=== PATIENT | female | born 1995 | race Caucasian/White ===

== ENCOUNTER → 2019-02-08 13:40 | Observation (INO) ==
[2019-02-08 10:39] LABS: Amphetamine Screen,Urine Negative ng/mL (Cutoff=1000); Barbiturate Screen,Urine Negative ng/mL (Cutoff=200); Benzodiazepines Screen,Urine Negative ng/mL (Cutoff=200); Cannabinoid Screen,Urine Negative ng/mL (Cutoff = 50); Cocaine Screen,Urine Negative ng/mL (Cutoff= 300); Opiate Screen,Urine Negative ng/mL (Cutoff=300); Phencyclidine Screen,Urine Negative ng/mL (Cutoff=25)
--- NOTE | 2019-02-08 13:23 | Discharge Summary ---
Date of Encounter: 02/08/19 Time of Encounter: 13:22 - Discharge Diagnosis (1) 35 weeks gestation of Priority: Primary Status: Acute Comments: Follow-up with Dr. Winn as scheduled Labor parameters discussed [facility] home (2) Gestational diabetes mellitus (GDM) treated with oral hypoglycemic therapy Priority: Secondary Status: Acute Comments: Continue oral hypoglycemics per recommendation from [facility] (3) NST (non-stress test) reactive Priority: Secondary Status: Acute Comments: Patient was monitored for almost 4 hours with a category 1 tracing. Ultrasound was completed and ADRIA found to be 7.8 cm. 1 L IV fluids given and patient instructed on hydration - Discharge Medications Prescriptions: No Action Zantac 75 75 mg PO BID Vitamin C 1 mg PO DAILY One Tablet 1 tab PO DAILY metFORMIN 1,000 mg PO BID Ferrous Fumarate/Iron Ps Cplx 1 tab PO TID Home Medications: Ferrous Fumarate/Iron Ps Cplx 1 tab PO TID 01/15/19 [History] One Tablet 1 tab PO DAILY 01/15/19 [History] Vitamin C 1 mg PO DAILY 01/15/19 [History] Zantac 75 75 mg PO BID 01/15/19 [History] metFORMIN 1,000 mg PO BID 01/15/19 [History] Allergies/Adverse Reactions: Allergy/AdvReac Type Severity Reaction Status Date / Time No Known Allergies Allergy Verified 02/08/19 09:55 Data Procedures and tests throughout hospitalization: Laboratory Tests 02/08/19 02/08/19 10:13 12:09 Glucose 77 Urine Opiates Screen Negative Ur Buprenorphine Scrn Negative Ur Barbiturates Screen Negative Ur Phencyclidine Scrn Negative Ur Amphetamines Screen Negative U Benzodiazepines Scrn Negative Urine Cocaine Screen Negative U Marijuana (THC) Screen Negative Ur Drug Screen Interp See Below Labs on day of discharge: Labs from last 24 hours 02/08/19 02/08/19 12:09 10:13 Glucose 77 Urine Opiates Screen Negative Ur Buprenorphine Scrn Negative Ur Barbiturates Screen Negative Ur Phencyclidine Scrn Negative Ur Amphetamines Screen Negative U Benzodiazepines Scrn Negative Urine Cocaine Screen Negative U Marijuana (THC) Screen Negative Ur Drug Screen Interp See Below - Impressions ITS Impressions Obstetrics Ultrasound 02/08/19 10:00 IMPRESSION: 1. Single live intrauterine with gestational age of 35 weeks 3 days by current sonographic biometry. The estimated due date is 03/12/2019. 2. Findings are consistent with oligohydramnios, with a mildly reduced ADRIA of 7.8 cm. D/ / Felix Maciel MD / Felix Maciel MD Interpreting Provider: Felix Maciel MD Date of admission: 02/08/19 09:35 Primary care physician: Natalie Spears CNP Discharging clinician: Cary Rodrigues Anticipated date of discharge: 02/08/19 - Patient Status Disposition: Home, Self-Care Condition: Good Functional capacity at discharge: independent ambulation Overall status at discharge: patient is progressing back to baseline - Discharge Instructions Follow Up With: Natalie Spears CNP [Primary Care Provider] - Cary Winn MD [Partnered Physician] - Additional Instructions: LABOR AND DELIVERY DISCHARGE INSTRUCTIONS Signs and Symptoms to be Reported to your Doctor Immediately: * Sudden gush, continuous or intermittent lead of fluid from vagina (note the time of gush and color of fluid) * Onset of bright red vaginal bleeding with or without pain (if you had a vaginal exam during this visit you may notice some dark red spotting. This is normal.) * Lower abdominal cramping or backache that is premenstrual-like feeling. * More than 6 contractions in one hour. * Burning during urination, having to urinate more frequently or pain in your mid-back. * A change in the baby's activity. This could be an increase or decrease in activity. * Severe headache which does not go away with tylenol. * Sudden swelling in the face, hands, arms and/or legs. * Upper abdominal pain - sometimes associated with heartburn or nausea and is not relieved by Maalox, Mylanta or Tums. * Dizziness or blurred vision or visual disturbances (seeing stars/lights). * Kick Counts One hour after a meal, lay down on one side in a quiet place. Count the number of diana the baby moves during an hour. If less than 6 movements, notify your physician. Diet: *Force fluids - 8-10 tall glasses of fluid per day. May include popsicles and jello. 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 She is gestational diabetic controlled on 1000 mg metformin twice a day. She is followed up closely with [facility] regarding her gestational diabetes. She was monitored here on the unit for 3+ hours. She was discharged home in stable condition per consultation with Dr. Peres. Time Attestation: Total time spent providing and/or coordinating discharge services: Time Spent: Less than 30 minutes Exam - Constitutional General appearance IM: A&O X 3, morbidly obese, pleasant, no acute distress, an swers questions appropriately - Respiratory Respiratory exam: Present: CTAB - Cardiovascular Cardiovascular exam IM: Present: RRR, +S1, +S2 - GI/Abdominal GI/Abdominal exam IM: normal bowel sounds, no peritoneal signs - Rectal Rectal exam: deferred - Uterine Tone: Firm - Extremities Exam Extremities exam IM: Present: full ROM, normal capillary refill, normal in spection, radial pulses palpable and symmetrical - Neurological Exam Neurological exam: alert, CN II-XII intact, normal gait, oriented X3, reflexes normal, no focal deficits, strengths equal and symetr throughout - VTE Reasons for not Prescribing Prophylaxis: Treatment not Indicated - Low risk for VTE
[~2019-02-08 13:40] MED LIST: Betamethasone Acet/SodPhos 30 MG/5 ML VIAL IM SCH; Ringers Solution, Lactated 1,000 ML IVC ONE; Ringers Solution, Lactated 1,000 ML ONE
== END | disposition home or self-care (01) ==
LOC: 1NENULAB
PROVIDERS: ADMIT Advanced Practice Midwife; ATTEND Advanced Practice Midwife

== ENCOUNTER → 2019-02-13 22:05 | Observation (INO) ==
[2019-02-13 16:12] LABS: Bilirubin,Urine Negative (Negative); Blood,Urine Negative (Negative); Clarity,Urine Cloudy (Clear); Color,Urine Yellow (Yellow); Glucose,Urine (UA) Normal (Normal); Ketones,Urine Negative (Negative); Leukocyte Esterase,Urine Moderate (Negative); Nitrite,Urine Negative (Negative); PH,Urine 6.5 pH Units (5.0-8.0); Protein,Urine Negative (Neg-Trace); Specific Gravity,Urine 1.026 (1.010-1.025); Urobilinogen,Urine Normal (Normal)
[2019-02-13 16:13] LABS: Bacteria,Urine Many per hpf (None-Few); Hyaline Casts,Urine Few per lpf (None-Few); Squamous Epithelial Cell,Urine Many per lpf (None-Few); WBC,Urine 30-50 per hpf (0-3)
[2019-02-13 16:21] LABS: Amphetamine Screen,Urine Negative ng/mL (Cutoff=1000); Barbiturate Screen,Urine Negative ng/mL (Cutoff=200); Benzodiazepines Screen,Urine Negative ng/mL (Cutoff=200); Cannabinoid Screen,Urine Negative ng/mL (Cutoff = 50); Cocaine Screen,Urine Negative ng/mL (Cutoff= 300); Opiate Screen,Urine Negative ng/mL (Cutoff=300); Phencyclidine Screen,Urine Negative ng/mL (Cutoff=25)
[2019-02-13 16:35] LABS: Calcium Oxalate Crystals,Urine Present; RBC,Urine 0-3 per hpf (0-3)
--- NOTE | 2019-02-13 18:02 | OB/GYN Progress Note ---
Date of Encounter: 02/13/19 Time of Encounter: 17:00 - Assessment and Plan (1) 35 weeks gestation of Current Visit: No Status: Acute Monitor for S/S labor with toco. Monitor activity and FHTs per external monitor. Hydrate as tolerated. (2) Elevated blood pressure affecting in third trimester, antepartum Current Visit: No Status: Acute BP's normal to severe range. All BP's that were severe were taken on forearm. Pt denies s/sx preeclampsia. PIH labs ordered. Disposition pending results. (3) Gestational diabetes mellitus (GDM) treated with oral hypoglycemic therapy Current Visit: No Status: Acute Blood sugar level done by patient with fingerstick, blood glucose levels from lab. Maintain oral hypoglycemic therapy. (4) Pelvic pain affecting in third trimester, antepartum Current Visit: No Status: Acute SVE FT/50/-2, rare contractions on toco (5) ADRIA (amniotic fluid index) borderline low Current Visit: Yes Status: Acute ADRIA on US is normal today. NST has been reviewed by Dr. Peres. Plan for discharge pending BP's and PIH labs. Subjective - Subjective Principal diagnosis: Low pelvic pressure Interval history: 23 y/o female at 35 weeks 5 days in presenting with complaint of low pelvic pressure. She noticed this starting at around 1400 this afternoon. She denies any vaginal leakage, discharge or bleeding. Reports less movement today than normal but has felt movement. Has noticed some frequency with voids over the last couple of days but no burning or pain. Has had increased heartburn in the past week that has not been relieved by meds as well as before. Denies headache or blurred vision. Antepartum ROS: movement normal, no loss of fluid, no vaginal bleeding Objective - Vital Signs Vital Signs: Intake and Output 02/13/19 02/13/19 02/13/19 07:59 15:59 23:59 Other: Weight 113.8 kg Patient Weight 02/13/19 23:59 Weight 113.8 kg - Exam Auscultation: bilateral: normal Abdomen: Present: normal appearance, soft, gravid Comments: Has 1+ edema bilaterally to lower extremities, nonpitting. - Labs Labs: Abnormal lab results Urine Clarity Cloudy (Clear) A 02/13/19 15:51 Ur Specific [place] 1.026 (1.010-1.025) H 02/13/19 15:51 Ur Leukocyte Esterase Moderate (Negative) H 02/13/19 15:51 Urine Microscopic WBC 30-50 per hpf (0-3) H 02/13/19 15:51 Ur Squamous Epith Cells Many per lpf (None-Few) H 02/13/19 15:51 Urine Bacteria Many per hpf (None-Few) H 02/13/19 15:51 Ur Culture Indicated? YES (NO) A 02/13/19 15:51
--- NOTE | 2019-02-13 20:10 | Discharge Summary ---
Date of Encounter: 02/13/19 Time of Encounter: 21:20 - Discharge Diagnosis (1) 35 weeks gestation of Priority: Primary Status: Acute Comments: admitted for observation (2) Elevated blood pressure affecting in third trimester, antepartum Priority: Secondary Status: Acute Comments: BPs and lab work reviewed with Dr. Peres. Orders received to discharge home with 24 hour urine. (3) NST (non-stress test) reactive Priority: Secondary Status: Acute Comments: FHR 140 bpm moderate variability +15x15 accels no decels noted. CAt. 1 tracing - Discharge Medications Prescriptions: No Action Zantac 75 75 mg PO BID Vitamin C 1 mg PO DAILY One Tablet 1 tab PO DAILY metFORMIN 1,000 mg PO QPM Ferrous Fumarate/Iron Ps Cplx 1 tab PO TID metFORMIN 1,500 mg PO QAM Home Medications: Ferrous Fumarate/Iron Ps Cplx 1 tab PO TID 01/15/19 [History] One Tablet 1 tab PO DAILY 01/15/19 [History] Vitamin C 1 mg PO DAILY 01/15/19 [History] Zantac 75 75 mg PO BID 01/15/19 [History] metFORMIN 1,000 mg PO QPM 01/15/19 [History] metFORMIN 1,500 mg PO QAM 02/13/19 [History] Allergies/Adverse Reactions: Allergy/AdvReac Type Severity Reaction Status Date / Time No Known Allergies Allergy Verified 02/08/19 09:55 Data Procedures and tests throughout hospitalization: Laboratory Tests 02/13/19 02/13/19 15:51 15:51 Urine Color Yellow Urine Clarity Cloudy A Urine pH 6.5 Ur Specific [place] 1.026 H Urine Protein Negative Urine Glucose (UA) Normal Urine Ketones Negative Urine Blood Negative Urine Nitrite Negative Urine Bilirubin Negative Urine Urobilinogen Normal Ur Leukocyte Esterase Moderate H Urine Microscopic RBC 0-3 Urine Microscopic WBC 30-50 H Ur Squamous Epith Cells Many H Calcium Oxalate Crystal Present Urine Bacteria Many H Hyaline Casts Few Ur Culture Indicated? YES A Urine Opiates Screen Negative Ur Buprenorphine Scrn Negative Ur Barbiturates Screen Negative Ur Phencyclidine Scrn Negative Ur Amphetamines Screen Negative U Benzodiazepines Scrn Negative Urine Cocaine Screen Negative U Marijuana (THC) Screen Negative Ur Drug Screen Interp See Below Labs on day of discharge: Labs from last 24 hours 02/13/19 02/13/19 15:51 15:51 Urine Color Yellow Urine Clarity Cloudy A Urine pH 6.5 Ur Specific [place] 1.026 H Urine Protein Negative Urine Glucose (UA) Normal Urine Ketones Negative Urine Blood Negative Urine Nitrite Negative Urine Bilirubin Negative Urine Urobilinogen Normal Ur Leukocyte Esterase Moderate H Urine Microscopic RBC 0-3 Urine Microscopic WBC 30-50 H Ur Squamous Epith Cells Many H Calcium Oxalate Crystal Present Urine Bacteria Many H Hyaline Casts Few Ur Culture Indicated? YES A Urine Opiates Screen Negative Ur Buprenorphine Scrn Negative Ur Barbiturates Screen Negative Ur Phencyclidine Scrn Negative Ur Amphetamines Screen Negative U Benzodiazepines Scrn Negative Urine Cocaine Screen Negative U Marijuana (THC) Screen Negative Ur Drug Screen Interp See Below Preliminary micro results at discharge 02/13/19 15:51 Urine Culture - Preliminary Urine,Clean Catch Culture is incubating. - Impressions ITS Impressions Obstetrics Ultrasound 02/13/19 17:02 IMPRESSION: 1. Single live IUP. 2. Amniotic fluid index increased from the previous exam now measuring approximately 11.7 cm. 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 No contractions noted. Cat 1 tracing. - VTE Reasons for not Prescribing Prophylaxis: Treatment not Indicated - Low risk for VTE
[2019-02-13 20:25] LABS: Alanine Aminotransferase 10 Units/L (7-52); Aspartate Amino Transferase 12 Units/L (13-39); BUN/Creatinine Ratio 17 (6-26); Blood Urea Nitrogen 11 mg/dL (6-20); Lactate Dehydrogenase 127 Units/L (140-271); Uric Acid 3.8 mg/dL (2.3-7.6); eGFR For African Americans > 60 (> 60); eGFR For Non-African Americans > 60 (> 60)
[2019-02-13 21:15] LABS: Basophils % 0.1 %; Eosinophils # 0.1 K/mcL (0.0-0.6); Eosinophils % 0.4 %; Hematocrit 33.5 % (35.3-44.9); Hemoglobin 11.3 g/dL (11.5-15.4); Immature Granulocytes % 0.4 % (0-4); Lymphocytes % 21.5 %; Mean Corpuscular HGB Conc 33.7 g/dL (31.6-35.5); Mean Corpuscular Hemoglobin 30.5 pg (28.0-33.3); Mean Corpuscular Volume 90.3 fL (83.0-100.0); Mean Platelet Volume 9.2 fL (9.4-12.4); Monocytes # 0.5 K/mcL (0.0-1.3); Monocytes % 3.7 %; Neutrophils # 10.3 K/mcL (1.6-8.9); Platelet Count 332 K/mcL (140-400); Red Blood Count 3.71 M/mcL (3.82-4.97); Red Cell Distribution Width 14.1 % (11.5-14.5); Segmented Neutrophils % 73.9 %; White Blood Count 13.9 K/mcL (4.3-11.1)
[~2019-02-13 22:05] MED LIST changes: +Acetaminophen 325 MG TABLET PO ONE; -Betamethasone Acet/SodPhos 30 MG/5 ML VIAL IM SCH; -Ringers Solution, Lactated 1,000 ML IVC ONE; -Ringers Solution, Lactated 1,000 ML ONE
[2019-02-13 23:03] LABS: Protein/Creatinine Ratio,Urine 0.14 mg/mg (0.00-0.20)
== END | disposition home or self-care (01) ==
LOC: 1NENULAB
PROVIDERS: ADMIT Registered Nurse; ATTEND Registered Nurse

== ENCOUNTER → 2019-02-19 15:08 | Observation (INO) ==
[2019-02-19 13:32] LABS: Bilirubin,Urine Negative (Negative); Blood,Urine Negative (Negative); Clarity,Urine Cloudy (Clear); Color,Urine Yellow (Yellow); Glucose,Urine (UA) Normal (Normal); Ketones,Urine Negative (Negative); Leukocyte Esterase,Urine Moderate (Negative); Nitrite,Urine Negative (Negative); Protein,Urine Negative (Neg-Trace); Specific Gravity,Urine 1.026 (1.010-1.025); Urobilinogen,Urine Normal (Normal)
[2019-02-19 13:33] LABS: Bacteria,Urine Moderate per hpf (None-Few); Hyaline Casts,Urine Few per lpf (None-Few); Squamous Epithelial Cell,Urine Many per lpf (None-Few); WBC,Urine 30-50 per hpf (0-3)
[2019-02-19 13:58] LABS: Calcium Oxalate Crystals,Urine Present
[2019-02-19 13:59] LABS: RBC,Urine 0-3 per hpf (0-3)
[2019-02-19 14:11] LABS: Amphetamine Screen,Urine Negative ng/mL (Cutoff=1000); Barbiturate Screen,Urine Negative ng/mL (Cutoff=200); Benzodiazepines Screen,Urine Negative ng/mL (Cutoff=200); Cannabinoid Screen,Urine Negative ng/mL (Cutoff = 50); Cocaine Screen,Urine Negative ng/mL (Cutoff= 300); Opiate Screen,Urine Negative ng/mL (Cutoff=300); Phencyclidine Screen,Urine Negative ng/mL (Cutoff=25)
--- NOTE | 2019-02-19 15:02 | Discharge Summary ---
Date of Encounter: 02/19/19 Time of Encounter: 15:01 - Discharge Diagnosis (1) 36 weeks gestation of Priority: Primary Status: Acute Comments: admitted for observation (2) NST (non-stress test) reactive Priority: Secondary Status: Acute Comments: reactive nst FHR 125 bpm moderate variability +15x15 accels no decels noted. Cat. 1 tracing - Discharge Medications Prescriptions: No Action Zantac 75 150 mg PO BID Vitamin C 1 mg PO DAILY One Tablet 1 tab PO DAILY metFORMIN 1,000 mg PO QPM Ferrous Fumarate/Iron Ps Cplx 1 tab PO TID metFORMIN 1,500 mg PO QAM Home Medications: Ferrous Fumarate/Iron Ps Cplx 1 tab PO TID 01/15/19 [History] One Tablet 1 tab PO DAILY 01/15/19 [History] Vitamin C 1 mg PO DAILY 01/15/19 [History] Zantac 75 150 mg PO BID 01/15/19 [History] metFORMIN 1,000 mg PO QPM 01/15/19 [History] metFORMIN 1,500 mg PO QAM 02/13/19 [History] Allergies/Adverse Reactions: Allergy/AdvReac Type Severity Reaction Status Date / Time No Known Allergies Allergy Verified 02/08/19 09:55 Data Procedures and tests throughout hospitalization: Laboratory Tests 02/19/19 02/19/19 12:50 12:50 Urine Color Yellow Urine Clarity Cloudy A Urine pH 6.0 Ur Specific [place] 1.026 H Urine Protein Negative Urine Glucose (UA) Normal Urine Ketones Negative Urine Blood Negative Urine Nitrite Negative Urine Bilirubin Negative Urine Urobilinogen Normal Ur Leukocyte Esterase Moderate H Urine Microscopic RBC 0-3 Urine Microscopic WBC 30-50 H Ur Squamous Epith Cells Many H Calcium Oxalate Crystal Present Urine Bacteria Moderate H Hyaline Casts Few Ur Culture Indicated? YES A Urine Opiates Screen Negative Ur Buprenorphine Scrn Negative Ur Barbiturates Screen Negative Ur Phencyclidine Scrn Negative Ur Amphetamines Screen Negative U Benzodiazepines Scrn Negative Urine Cocaine Screen Negative U Marijuana (THC) Screen Negative Ur Drug Screen Interp See Below Labs on day of discharge: Labs from last 24 hours 02/19/19 02/19/19 12:50 12:50 Urine Color Yellow Urine Clarity Cloudy A Urine pH 6.0 Ur Specific [place] 1.026 H Urine Protein Negative Urine Glucose (UA) Normal Urine Ketones Negative Urine Blood Negative Urine Nitrite Negative Urine Bilirubin Negative Urine Urobilinogen Normal Ur Leukocyte Esterase Moderate H Urine Microscopic RBC 0-3 Urine Microscopic WBC 30-50 H Ur Squamous Epith Cells Many H Calcium Oxalate Crystal Present Urine Bacteria Moderate H Hyaline Casts Few Ur Culture Indicated? YES A Urine Opiates Screen Negative Ur Buprenorphine Scrn Negative Ur Barbiturates Screen Negative Ur Phencyclidine Scrn Negative Ur Amphetamines Screen Negative U Benzodiazepines Scrn Negative Urine Cocaine Screen Negative U Marijuana (THC) Screen Negative Ur Drug Screen Interp See Below Date of admission: 02/19/19 12:37 Primary care physician: Natalie Spears CNP Discharging clinician: Laurence Pedraza Anticipated date of discharge: 02/19/19 - Patient Status Disposition: Home, Self-Care Condition: Good - Discharge Instructions Follow Up With: Natalie Spears CNP [Primary Care Provider] - Cary Winn MD [Partnered Physician] - - Diet and Activity Activity: increase activity as tolerated Diet: regular diet 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 Patient did have a reactive NST and BPP 8/8. Patient denies contractions, LOF or VB. Time Attestation: Total time spent providing and/or coordinating discharge services: Time Spent: Less than 30 minutes Exam - Constitutional General appearance IM: A&O X 3, pleasant, answers questions appropriately - Other Additional findings: FHr 125 bpm moderate variability +15x15 accels no decels noted. Irregular contractions. Cat. 1 tracing - VTE Reasons for not Prescribing Prophylaxis: Treatment not Indicated - Low risk for VTE
== END | disposition home or self-care (01) ==
LOC: 1NENULAB
PROVIDERS: ADMIT Advanced Practice Midwife; ATTEND Advanced Practice Midwife

== ENCOUNTER 2019-02-27 12:54 | Inpatient (IN) ==
[2019-02-27] MEDS ORDERED: Naloxone 0.4 MG/ML INJ IVP PRN (14:49)
[2019-02-27] MEDS ORDERED: Metoclopramide 10 MG/2 ML VIAL IVP PRN (14:49)
[2019-02-27] MEDS ORDERED: Ondansetron 4 MG/2 ML VIAL IVP PRN (14:49)
[2019-02-27] MEDS ORDERED: Famotidine 20 MG/2 ML VIAL IVP PRN (14:49)
[2019-02-27] MEDS ORDERED: Penicillin G Potassium 5,000,000 UNIT in 0.9 % Sodium Chloride Mini Bag 100 ML IVPB ONE (14:49)
[2019-02-27] MEDS ORDERED: *HR* Nalbuphine 10 MG/ML AMPUL IVP PRN (14:49)
[2019-02-27 15:34] LABS: Basophils % 0.1 %; Eosinophils % 0.2 %; Hematocrit 35.2 % (35.3-44.9); Immature Granulocytes % 0.3 % (0-4); Lymphocytes # 2.2 K/mcL (0.6-4.6); Mean Corpuscular HGB Conc 34.1 g/dL (31.6-35.5); Mean Corpuscular Hemoglobin 30.2 pg (28.0-33.3); Mean Corpuscular Volume 88.4 fL (83.0-100.0); Mean Platelet Volume 9.6 fL (9.4-12.4); Monocytes # 0.5 K/mcL (0.0-1.3); Monocytes % 3.7 %; Neutrophils # 9.3 K/mcL (1.6-8.9); Platelet Count 342 K/mcL (140-400); Red Blood Count 3.98 M/mcL (3.82-4.97); Red Cell Distribution Width 14.1 % (11.5-14.5); Segmented Neutrophils % 77.7 %
[2019-02-27 15:38] LABS: Amphetamine Screen,Urine Negative ng/mL (Cutoff=1000); Barbiturate Screen,Urine Negative ng/mL (Cutoff=200); Benzodiazepines Screen,Urine Negative ng/mL (Cutoff=200); Cannabinoid Screen,Urine Negative ng/mL (Cutoff = 50); Cocaine Screen,Urine Negative ng/mL (Cutoff= 300); Opiate Screen,Urine Negative ng/mL (Cutoff=300); Phencyclidine Screen,Urine Negative ng/mL (Cutoff=25)
[2019-02-27] MEDS ORDERED: miSOPROStoL 100 MCG TABLET PO STA (18:43)
[2019-02-27] MEDS: Ringers Solution, Lactated 1,000 ML IVC SCH (19:25)
[2019-02-27] MEDS: Penicillin G Potassium 2,500,000 UNIT in 0.9 % Sodium Chloride 100 ML IVPB SCH ×2 (19:30→23:34)
[2019-02-27] MEDS ORDERED: *HR* FentaNYL (PF) 100 MCG/2 ML VIAL EP ONE (20:21)
[2019-02-27] MEDS ORDERED: Ropivacaine/PF 0.2% 20 ML VIAL EP ONE (20:21)
[2019-02-27] MEDS ORDERED: Epidural Premix (fent/bupiv) 110 ML EP SCH (20:30)
[2019-02-27] MEDS ORDERED: Famotidine 20 MG TABLET PO ONE ×2 (22:30→22:45)
[2019-02-27] MEDS ORDERED: Oxytocin 20 units/ LR 1000 mL 20 UNIT/1,000 ML BAG IVC SCH (22:45)
[2019-02-28 00:26] LABS: Creatinine,Urine 165 mg/dL; Protein/Creatinine Ratio,Urine 0.15 mg/mg (0.00-0.20)
[2019-02-28 00:29] LABS: Alanine Aminotransferase 13 Units/L (7-52); Aspartate Amino Transferase 15 Units/L (13-39); BUN/Creatinine Ratio 18 (6-26); Blood Urea Nitrogen 9 mg/dL (6-20); Lactate Dehydrogenase 153 Units/L (140-271); Uric Acid 3.9 mg/dL (2.3-7.6); eGFR For African Americans > 60 (> 60); eGFR For Non-African Americans > 60 (> 60)
[2019-02-28] MEDS: Penicillin G Potassium 2,500,000 UNIT in 0.9 % Sodium Chloride 100 ML IVPB SCH (04:11)
[2019-02-28] MEDS: Ringers Solution, Lactated 1,000 ML IVC SCH (04:13)
[2019-02-28] MEDS ORDERED: Lidocaine/EPI 1:200k 1% PF 10 ML VIAL ONE (07:20)
[2019-02-28] MEDS ORDERED: Prenatal Vit/FA 1 EACH TABLET PO SCH (09:24)
[2019-02-28] MEDS ORDERED: Benzocaine/Menthol 56 GM AEROSOL SPRAY TP PRN (09:24)
[2019-02-28] MEDS ORDERED: Acetaminophen 325 MG TABLET PO PRN (09:24)
[2019-02-28] MEDS ORDERED: Oxytocin 20 units/ LR 1000 mL 20 UNIT/1,000 ML BAG IVC SCH (09:24)
[2019-02-28] MEDS ORDERED: Ibuprofen 600 MG TABLET PO PRN (09:24)
[2019-02-28] MEDS ORDERED: Measles/Mumps/Rubella Vacc 0.5 ML VIAL SQ PRN (09:24)
[2019-03-01 11:18] VITALS: BP 107/72
== END 2019-03-01 10:40 | disposition home or self-care (01) | DRG 806 ==
LOC: 1NENULAB 12:54 → 1NENUOBS 02-28 11:44
PROVIDERS: ADMIT Registered Nurse; ATTEND Registered Nurse

== ENCOUNTER → 2021-04-13 16:42 | Observation (INO) ==
[2021-04-13 15:53] LABS: Basophils % 0.1 %; Eosinophils # 0.1 K/mcL (0.0-0.6); Eosinophils % 0.9 %; Hematocrit 34.1 % (35.3-44.9); Hemoglobin 11.4 g/dL (11.5-15.4); Immature Granulocytes % 0.5 % (0-4); Lymphocytes % 19.7 %; Mean Corpuscular HGB Conc 33.4 g/dL (31.6-35.5); Mean Corpuscular Hemoglobin 30.6 pg (28.0-33.3); Mean Corpuscular Volume 91.7 fL (83.0-100.0); Mean Platelet Volume 9.5 fL (9.4-12.4); Monocytes # 0.4 K/mcL (0.0-1.3); Neutrophils # 7.7 K/mcL (1.6-8.9); Platelet Count 313 K/mcL (140-400); Red Blood Count 3.72 M/mcL (3.82-4.97); Red Cell Distribution Width 13.6 % (11.5-14.5); Segmented Neutrophils % 74.8 %; White Blood Count 10.3 K/mcL (4.3-11.1)
[2021-04-13 16:03] LABS: Protein/Creatinine Ratio,Urine 0.15 mg/mg (0.00-0.20)
[2021-04-13 16:13] LABS: Alanine Aminotransferase 10 Units/L (7-52); Aspartate Amino Transferase 12 Units/L (13-39); BUN/Creatinine Ratio 20 (6-26); Blood Urea Nitrogen 9 mg/dL (6-20); Lactate Dehydrogenase 116 Units/L (140-271); Uric Acid 3.6 mg/dL (2.3-7.6); eGFR For African Americans > 60 (> 60); eGFR For Non-African Americans > 60 (> 60)
== END | disposition home or self-care (01) ==
LOC: 1NENULAB
PROVIDERS: ADMIT Advanced Practice Midwife; ATTEND Advanced Practice Midwife

== ENCOUNTER 2021-04-14 22:20 | Inpatient (IN) ==
[2021-04-14 21:59] LABS: Basophils % 0.2 %; Eosinophils # 0.2 K/mcL (0.0-0.6); Eosinophils % 1.5 %; Hematocrit 32.4 % (35.3-44.9); Hemoglobin 11.1 g/dL (11.5-15.4); Immature Granulocytes % 0.4 % (0-4); Lymphocytes # 2.5 K/mcL (0.6-4.6); Lymphocytes % 22.2 %; Mean Corpuscular HGB Conc 34.3 g/dL (31.6-35.5); Mean Corpuscular Hemoglobin 30.7 pg (28.0-33.3); Mean Corpuscular Volume 89.8 fL (83.0-100.0); Mean Platelet Volume 9.4 fL (9.4-12.4); Monocytes # 0.5 K/mcL (0.0-1.3); Neutrophils # 8.1 K/mcL (1.6-8.9); Platelet Count 283 K/mcL (140-400); Red Blood Count 3.61 M/mcL (3.82-4.97); Red Cell Distribution Width 13.5 % (11.5-14.5); Segmented Neutrophils % 71.7 %; White Blood Count 11.3 K/mcL (4.3-11.1)
[2021-04-14 22:09] LABS: Protein/Creatinine Ratio,Urine 0.17 mg/mg (0.00-0.20)
[2021-04-14 22:19] LABS: Alanine Aminotransferase 10 Units/L (7-52); Aspartate Amino Transferase 14 Units/L (13-39); BUN/Creatinine Ratio 21 (6-26); Blood Urea Nitrogen 10 mg/dL (6-20); Lactate Dehydrogenase 144 Units/L (140-271); Uric Acid 3.7 mg/dL (2.3-7.6); eGFR For African Americans > 60 (> 60); eGFR For Non-African Americans > 60 (> 60)
[~2021-04-14 22:20] MED LIST changes: +*HR* Nalbuphine 10 MG/ML AMPUL IV PRN; -Acetaminophen 325 MG TABLET PO ONE; +Famotidine 20 MG/2 ML VIAL IVP PRN; +Lidocaine 1% 20 ML MDV INFILT PRN; +Metoclopramide 10 MG/2 ML VIAL IVP PRN; +Naloxone 0.4 MG/ML INJ IVP PRN; +Ringers Solution, Lactated 1,000 ML IVC SCH
[2021-04-14] MEDS ORDERED: CeFAZolin Syr 3,000MG/30 ML 3,000 MG/30 ML SYRINGE IVPB ONE (22:42)
[2021-04-15 04:12] LABS: Amphetamine Screen,Urine Negative ng/mL (Cutoff=1000); Barbiturate Screen,Urine Negative ng/mL (Cutoff=200); Benzodiazepines Screen,Urine Negative ng/mL (Cutoff=200); Cannabinoid Screen,Urine Negative ng/mL (Cutoff = 50); Cocaine Screen,Urine Negative ng/mL (Cutoff= 300); Opiate Screen,Urine Negative ng/mL (Cutoff=300); Phencyclidine Screen,Urine Negative ng/mL (Cutoff=25)
[2021-04-15 05:48] LABS: Basophils % 0.2 %; Eosinophils # 0.2 K/mcL (0.0-0.6); Hematocrit 32.4 % (35.3-44.9); Hemoglobin 11.1 g/dL (11.5-15.4); Immature Granulocytes % 0.5 % (0-4); Lymphocytes # 2.9 K/mcL (0.6-4.6); Mean Corpuscular HGB Conc 34.3 g/dL (31.6-35.5); Mean Corpuscular Hemoglobin 31.4 pg (28.0-33.3); Mean Corpuscular Volume 91.5 fL (83.0-100.0); Mean Platelet Volume 9.6 fL (9.4-12.4); Monocytes # 0.5 K/mcL (0.0-1.3); Monocytes % 4.1 %; Neutrophils # 8.2 K/mcL (1.6-8.9); Platelet Count 268 K/mcL (140-400); Red Blood Count 3.54 M/mcL (3.82-4.97); Red Cell Distribution Width 13.6 % (11.5-14.5); Segmented Neutrophils % 69.2 %; White Blood Count 11.9 K/mcL (4.3-11.1)
[2021-04-15 06:07] LABS: Alanine Aminotransferase 10 Units/L (7-52); Aspartate Amino Transferase 11 Units/L (13-39); BUN/Creatinine Ratio 21 (6-26); Blood Urea Nitrogen 10 mg/dL (6-20); Lactate Dehydrogenase 111 Units/L (140-271); Uric Acid 3.8 mg/dL (2.3-7.6); eGFR For African Americans > 60 (> 60); eGFR For Non-African Americans > 60 (> 60)
[2021-04-15] MEDS ORDERED: Promethazine 6.25 MG in Water for inj. (sterile) 20 ML IVPB PRN (07:40)
[2021-04-15] MEDS ORDERED: Ondansetron 4 MG/2 ML VIAL IVP PRN ×2 (07:40→11:58)
[2021-04-15] MEDS ORDERED: *HR* HYDROmorphone PF 0.5 MG/0.5 ML SYRINGE IVP PRN (07:40)
[2021-04-15] MEDS ORDERED: Oxytocin 20 units/ LR 1000 mL 20 UNIT/1,000 ML BAG IVC ONE (07:45)
[2021-04-15] MEDS ORDERED: *HR* Morphine Sulfate/PF 10 MG/10 ML AMPUL ONE (07:46)
[2021-04-15] MEDS ORDERED: *HR* FentaNYL (PF) 100 MCG/2 ML VIAL ONE (07:46)
[2021-04-15] MEDS ORDERED: Ondansetron 4 MG/2 ML VIAL ONE (07:46)
[2021-04-15] MEDS ORDERED: *HR* Phenylephrine 10 MG/ML VIAL ONE (07:46)
[2021-04-15] MEDS ORDERED: EPHEDrine 50 MG/ML VIAL ONE (07:46)
[2021-04-15] MEDS ORDERED: Acetaminophen IV 1,000 MG/100 ML BAG IVPB ONE (07:47)
[2021-04-15] MEDS ORDERED: CeFAZolin 2,000 MG/120 ML BAG IVPB ONE (08:20)
[2021-04-15] MEDS ORDERED: Ringers Solution, Lactated 1,000 ML ONE (08:26)
[2021-04-15] MEDS ORDERED: Ketorolac 30 MG/ML VIAL ONE (08:50)
[2021-04-15] MEDS ORDERED: Metoclopramide 10 MG/2 ML VIAL IVP PRN (11:58)
[2021-04-15] MEDS ORDERED: Ringers Solution, Lactated 1,000 ML IVC SCH (11:58)
[2021-04-15] MEDS ORDERED: Rho Immune Globulin 1,500 UNIT SYRINGE IM ONE (11:58)
[2021-04-15] MEDS ORDERED: Simethicone 80 MG TAB.CHEW PO PRN (11:58)
[2021-04-15] MEDS ORDERED: Oxytocin 20 units/ LR 1000 mL 20 UNIT/1,000 ML BAG IVC SCH (11:58)
[2021-04-15] MEDS ORDERED: *HR* OxyCODONE Immed Rel 5 MG TABLET PO PRN (11:58)
[2021-04-15] MEDS ORDERED: IRON PS CPLX PO SCH (15:00)
[2021-04-15] MEDS ORDERED: FERROUS FUMARATE PO SCH (15:00)
[2021-04-15] MEDS: Ibuprofen 600 MG TABLET PO SCH (20:31)
[2021-04-15] MEDS: Acetaminophen 325 MG TABLET PO SCH (20:31)
[2021-04-15] MEDS: *HR* Enoxaparin 60 MG/0.6 ML SYRINGE SQ SCH (20:33)
[2021-04-16] MEDS: Acetaminophen 325 MG TABLET PO SCH ×4 (02:27→20:29)
[2021-04-16] MEDS: Ibuprofen 600 MG TABLET PO SCH ×4 (02:27→20:29)
[2021-04-16 06:18] LABS: Basophils % 0.2 %; Eosinophils % 0.3 %; Hematocrit 32.5 % (35.3-44.9); Immature Granulocytes % 0.5 % (0-4); Lymphocytes # 3.4 K/mcL (0.6-4.6); Mean Corpuscular HGB Conc 33.8 g/dL (31.6-35.5); Mean Corpuscular Hemoglobin 30.8 pg (28.0-33.3); Mean Platelet Volume 9.9 fL (9.4-12.4); Monocytes # 0.6 K/mcL (0.0-1.3); Monocytes % 3.8 %; Neutrophils # 11.4 K/mcL (1.6-8.9); Platelet Count 302 K/mcL (140-400); Red Blood Count 3.57 M/mcL (3.82-4.97); Red Cell Distribution Width 13.6 % (11.5-14.5); Segmented Neutrophils % 73.2 %; White Blood Count 15.5 K/mcL (4.3-11.1)
[2021-04-16] MEDS: Prenatal Vit/FA 1 EACH TABLET PO SCH (08:03)
[2021-04-16] MEDS: *HR* Enoxaparin 60 MG/0.6 ML SYRINGE SQ SCH ×2 (08:04→20:29)
[2021-04-16] MEDS ORDERED: NON-FORMULARY MEDICATION 1 EACH EACH (Prenatal One Tablet 1 TAB) PO SCH (09:00)
[2021-04-17] MEDS: Ibuprofen 600 MG TABLET PO SCH ×2 (02:27→09:29)
[2021-04-17] MEDS: Acetaminophen 325 MG TABLET PO SCH ×2 (02:28→09:28)
[2021-04-17 08:56] VITALS: BP 126/82; PULSE 84; TEMP 98.3; O2SAT 98
[2021-04-17] MEDS: *HR* Enoxaparin 60 MG/0.6 ML SYRINGE SQ SCH (09:27)
[2021-04-17] MEDS: Prenatal Vit/FA 1 EACH TABLET PO SCH (09:28)
== END 2021-04-17 13:10 | disposition home or self-care (01) | DRG 540 ==
LOC: 1NENULAB → 1NENUOBS 04-15 11:41
PROVIDERS: ADMIT Registered Nurse; ATTEND Registered Nurse